=== PATIENT | female | born 1990 | race Two or more races ===

== ENCOUNTER 2022-01-15 19:42 | Emergency (ER) | payer OTHER ==
[~2022-01-15] VITALS: Ht 162.6 cm; Wt 59.0 kg
[2022-01-15] MEDS ORDERED: IV NS 0.9% 1,000 ML BAG IV ONE (20:00)
[2022-01-15] MEDS ORDERED: LORAZEPAM INJ 2 MG/ML VIAL IVP ONE (20:00)
--- NOTE | 2022-01-15 20:00 | NUR ---
[id number]. ALTERED, CONFUSED REPORTED SHE STIFFENED UP FOR 20 SEC. PT REPORTS HAVING STOPPED DRINKING X1 WEEK AGO AFTER DRINKING DAILY. PT CURRENTLY AWAKE AND ALERT BREATHING EVEN AND UNLABORED,PLACED ON MONITOR ANDPULSE OX AND TACHY IN 150S.
[2022-01-15] MEDS ORDERED: LORAZEPAM INJ 2 MG/ML VIAL ONE ×2 (20:07→21:33)
--- NOTE | 2022-01-15 20:07 | NUR ---
20G IV LINE ESTABLISHED LF. BLOOD DRAWN AND SENT TO LAB.
--- NOTE | 2022-01-15 20:13 | NUR ---
PT UNABLE TO PROVIDE URINE SAMPLE AT THIS TIME
--- NOTE | 2022-01-15 20:15 | NUR ---
WAIVER SIGNED AND PLACED IN PT CHART
--- NOTE | 2022-01-15 20:19 | NUR ---
FULL FASHIONED GARMENT KNITTER AT BEDSIDE
--- NOTE | 2022-01-15 20:23 | NUR ---
PT BEING TRANSPORTED TO CT
--- NOTE | 2022-01-15 20:23 | NUR ---
Canelo disla in [facility] - 01/15/22 at 2023 by KAIA PATIENT TAKEN TO CT VIA PATRICIA
[2022-01-15 20:28] LABS: BASOPHILS % (AUTO) 0.9 % (0.0-2.0); HEMATOCRIT 41 % (33-45); HEMOGLOBIN 14.1 g/dL (11.5-14.8); LYMPHOCYTES # (AUTO) 1.2 K/uL (0.8-4.8); LYMPHOCYTES % (AUTO) 29.5 % (20.0-44.0); MEAN CORPUSCULAR HGB CONC 35 g/dl (31.0-36.0); MEAN CORPUSCULAR VOLUME 101 fL (82-100); MONOCYTES # (AUTO) 0.4 K/uL (0.1-1.30); MONOCYTES % (AUTO) 9.6 % (2.0-12.0); NEUTROPHILS # (AUTO) 2.3 K/uL (1.8-8.9); PLATELET COUNT (AUTO) 75 K/uL (150-450); RED BLOOD CELL COUNT(AUTO) 4.02 MIL/uL (4.0-5.2)
[2022-01-15 20:36] LABS: CALCIUM, SERUM 9.3 mg/dL (8.5-10.1); CARBON DIOXIDE 20 mmol/L (21-32); CHLORIDE 98 mmol/L (98-107); CREATININE 1.1 mg/dL (0.6-1.3); GLUCOSE 171 mg/dL (74-106); POTASSIUM 3.4 mmol/L (3.5-5.1); SODIUM SERUM 133 mmol/L (136-145); UREA NITROGEN, BLOOD 6 mg/dL (7-18)
[2022-01-15 20:41] LABS: ALANINE AMINOTRANSFERASE 44 U/L (12-78); ALBUMIN 3.4 g/dL (3.4-5.0); ALKALINE PHOSPHATASE 52 U/L (46-116); ASPARTATE AMINOTRANSFERASE 57 U/L (15-37); BILIRUBIN,DIRECT 0.4 mg/dL (0.0-0.2); BILIRUBIN,TOTAL 0.8 mg/dL (0.2-1.0)
[2022-01-15 20:42] LABS: ALCOHOL, BLOOD < 3 mg/dL (0-0)
[2022-01-15 20:58] LABS: BAND % (MANUAL) 2 % (0.0-5.0); EOSINOPHILS % (MANUAL) 1 % (0-4); LYMPHOCYTES % (MANUAL) 25 % (16-48); MONOCYTES % (MANUAL) 9 % (0-11.0); NEUTROPHILS % (MANUAL) 55 (42-76); REACTIVE LYMPHOCYTES 8 % (0-0)
--- NOTE | 2022-01-15 21:03 | NUR ---
URINE SAMPLE SENT TO LAB
[2022-01-15] MEDS ORDERED: LORAZEPAM INJ 2 MG/ML VIAL IV ONE (22:00)
[2022-01-15] MEDS ORDERED: CHLO25CA22 PO (22:02)
--- NOTE | 2022-01-15 22:28 | NUR ---
Patient discharged to home in stable condition. Written and verbal after care instructions given. Patient verbalizes understanding of instruction.
[2022-01-15 22:29] VITALS: BP 129/71
== END 2022-01-15 22:29 | disposition home or self-care (01) ==
LOC: ER 19:44
DX: R56.9 Unspecified convulsions (principal); F10.239 Alcohol dependence with withdrawal, unspecified; F41.9 Anxiety disorder, unspecified; Z79.899 Other long term (current) drug therapy; Y90.0 Blood alcohol level of less than 20 mg/100 ml
CPT/HCPCS: 99285; 96374; 96361; 93005; 71045; 96376; 70450; 85025; 80048; 80076; 84703; 85007; 36415; 85730; 82962; 80320; 80307; J2060 ×2; J7030; G0480

== ENCOUNTER 2022-01-20 09:56 | Emergency (ER) | payer BC, OTHER ==
[~2022-01-20] VITALS: Ht 162.6 cm; Wt 61.2 kg
[~2022-01-20 09:56] MED LIST: CHLO25CA22 PO
[2022-01-20 10:04] VITALS: BP 121/72
--- NOTE | 2022-01-20 10:05 | NUR ---
THE PATIENT BIBS FOR [facility]. THE PATIENT IS ALERT AND ORIENTED X4. IN ROOM AIR AND DENIES SOB. RESPIRATION REGULAR AND UNLABORED. DENIES SI/HI. DENIES HAVING VISUAL/AUDITORY HALLUCINATIONS. WILL CONTINUE TO MONITOR THE PATIENT.
[2022-01-20] MEDS ORDERED: LORA-259 PO (10:57)
--- NOTE | 2022-01-20 11:06 | NUR ---
Patient discharged to home in stable condition. Written and verbal after care instructions given. Patient verbalizes understanding of instruction.
== END 2022-01-20 11:06 | disposition home or self-care (01) ==
LOC: ER 10:08
DX: F10.239 Alcohol dependence with withdrawal, unspecified (principal); F41.9 Anxiety disorder, unspecified; R00.0 Tachycardia, unspecified; Z76.0 Encounter for issue of repeat prescription; Z79.899 Other long term (current) drug therapy; Y90.9 Presence of alcohol in blood, level not specified